=== PATIENT | female | born 1975 | race Caucasian/White ===

== ENCOUNTER → 2020-10-22 | Outpatient (CLI) | payer OTHER ==
--- NOTE | 2020-10-25 07:15 | BMR ---
EXAMINATION TYPE: MR breast BILAT wo/w con DATE OF EXAM: 10/22/2020 COMPARISON: None at this institution. HISTORY: Breast cancer gene mutation-high risk TECHNIQUE: A series of fat and water weighted images in the long and short axis views of both breasts are obtained in conjunction with dynamic contrast MRI with subtraction technique. The patient was i njected with 8.5 ml mL intravenous Gadavist gadolinium contrast. Three-dimensional and additional p ostprocessing imaging is created on independent workstation and reviewed during official interpretati on of this study. FINDINGS: Heterogeneously dense fibroglandular tissue scattered throughout both breasts. T2 and STIR weighted images show no significant cystic change in either breast. No suspicious axillary adenopathy . Dynamic imaging shows fairly moderate background enhancement which is noted to lower sensitivity. D elayed dynamic imaging shows no suspicious internal mammary adenopathy. With regards to the left breast. Normal glandular enhancement is identified. No pathologic enhancemen t or enhancing masses are seen. No suspicious skin thickening. Chest wall is intact. With regards to the right breast there is a single suspicious 6 x 2 x 8 mm focus of T1 hypointensity and T2 hyperintensity with more heterogeneous enhancement roughly 5.0 cm distance from nipple middle depth central portion right breast seen best on dynacad imaging that is suspicious. No additional are as of pathologic enhancement or enhancing mass. No suspicious skin thickening. Chest wall is intact. IMPRESSION: Single small area of concern right breast. BI-RADS 2 benign findings left breast BI-RADS 0 incomplete study right breast Recommendation: Direct correlation with outside MRI to see if the area of concern is new finding whic h would warrant further diagnostic workup.
== END | disposition home or self-care (01) ==
LOC: RADMRIMAIN 11:36
PROVIDERS: ATTEND Obstetrics & Gynecology
DX: C50.919 Malignant neoplasm of unspecified site of unspecified female breast (principal); Z15.01 Genetic susceptibility to malignant neoplasm of breast
CPT/HCPCS: 77049; C8937; A9585

== ENCOUNTER 2021-05-19 06:16 | Day surgery (SDC) | payer OTHER ==
[2021-05-17 11:43] VITALS: BMI 33.6
[~2021-05-19 06:16] MED LIST: DEXAMETHASONE SOD PHOSPHATE 4 MG/ML 1 ML VIAL IV ONE; LACTATED RINGERS 1,000 ML IV SCH; MIDAZOLAM 2 MG/2 ML VIAL IV PRN; ONDANSETRON 4 MG/2 ML VIAL IVP ONE; SCOPOLAMINE 1.5MG/72HR PATCH TRANSDERM ONE
[2021-05-19] MEDS ORDERED: LIDOCAINE 1% (10MG/ML) FOR IV START INTRADERMA ONE (07:00)
[2021-05-19] MEDS ORDERED: HYDROmorphone 0.5 MG/0.5 ML SYRINGE IVP PRN (07:00)
[2021-05-19] MEDS ORDERED: .fentaNYL (PF) 50 MCG/ML 2 ML AMP ONE (07:21)
[2021-05-19] MEDS ORDERED: SUCCINYLCHOLINE CHLORIDE 100 MG/5 ML SYR IV ONE (07:21)
[2021-05-19] MEDS ORDERED: LIDOCAINE 1% INJ 10MG/ML (20 ML MDV) ONE (07:21)
[2021-05-19] MEDS ORDERED: PHENYLEPHRINE-0.9% NACL SYG 1,000 MCG/10 ML SYRINGE ONE (07:21)
[2021-05-19] MEDS ORDERED: PROPOFOL 10 MG/ML 20 ML VIAL IV ONE (07:21)
[2021-05-19] MEDS ORDERED: MIDAZOLAM 2 MG/2 ML VIAL ONE (07:21)
[2021-05-19] MEDS ORDERED: BUPIVACAINE (PF) 0.25% 30 ML VIAL SQ ONE (07:45)
[2021-05-19] MEDS ORDERED: LACTATED RINGERS 1,000 ML IV ONE (08:22)
--- NOTE | 2021-05-19 09:13 | P.OP ---
Date of Procedure: 05/19/21 Preoperative Diagnosis: Hallux valgus left foot Postoperative Diagnosis: Same Procedure(s) Performed: Modified Lapidus bunionectomy left foot Implants: Lapilasty plates and screws Anesthesia: MELVA Surgeon: Bowen Martinez Estimated Blood Loss (ml): 5 Pathology: none sent Condition: stable Disposition: PACU Description of Procedure: The patient was brought into the operating room and placed on the table supine position. Timeout was taken to confirm correct patient identifiers, correct procedure, and correct site of surgery. When all staff in the room were in agreement with the timeout, the patient was induced and placed under general anesthesia. An ankle block was performed with 20cc of Marcaine. A well-padded tourniquet was placed on the left ankle and then the left foot was prepped and draped in the usual manner. The foot was exsanguinated with an Esmarch bandage and the tourniquet inflated to 250 mmHg. Attention was first directed over the medial aspect of the first metatarsal phalangeal joint, where a linear incision was made between the neurovascular structures. It was deepened down to the saphenous tissue careful to identify, avoid, and retract any neurovascular structures and cauterize any bleeding vessels. Dissection was continued down to the first metatarsal phalangeal joint capsule. 2 semi-elliptical converging incisions are made along the medial aspect of the first metatarsal phalangeal joint and then the interposing piece of capsule was removed. The capsule was reflected from its osseous attachments on the medial plantar aspects of the first metatarsal head. The sesamoid apparatus was distracted plantarly and then the lateral sesamoid collateral ligament was transected and a lateral capsulotomy performed. Attention was directed over the dorsal aspect of the foot where a 6 cm incision was made centered over the tarsometatarsal joint medial to the extensor hallucis longus tendon. The incision was deepened down to the saphenous tissue careful to identify, avoid, and retract any neurovascular structures and cauterize any bleeding vessels. Dissection was then continued down to the periosteum and capsule and the same area. An incision was made medial to the extensor hallucis longus tendon to these tissues. Subperiosteal dissection was performed to expose the first tarsometatarsal joint. An osteotome was inserted into the joint to free the soft tissue attachments. A wire was placed through the medial aspect of the base of the first metatarsal to act as a joystick for frontal plane correction of the deformity. A fulcrum/joint seeker was then placed into the first tarsometatarsal joint. A Small stab incision was made on the lateral side of second metatarsal and bluntly dissected along the second metatarsal. The intermetatarsal angle reduction clamp was then placed over the second meta tarsal and then medially on the flare of the base of the first metatarsal. While simultaneously holding the frontal plane correction and position the reduction clamp was advanced to close the intermetatarsal angle. Fluoroscopic imaging was used to check the amount of correction. Once the frontal plane rotation as well as the transverse plane to 40 were fully corrected a guidepin was then placed through the reduction clamp to lock it in place. The cut guide was placed over the joint seeker and held in place with pins. Fluoroscopy was used to check the alignment to make sure there was enough bone resection. Once adequate a third pin was placed through the cut guide to lock it in place. A sagittal saw was then used to resect the articular surface of the base of first metatarsal and distal medial cuneiform. The locking pin for the cut guide was removed and then the cut guide was removed. Joint seeker was also removed at this time. The distraction device was placed over the pins and the joint opened to allow access for the cut portions of bone. The cut portions of bone were removed. And then the wound was explored for any remaining pieces of bone. Once fully clean that wound is irrigated thoroughly with antibiotic saline. Then a 2 mm drill bit was used to aggressively fenestrate the conjoining surfaces of the arthrodesis site. The pin through the angle reduction clamp was removed and the fulcrum reinserted at the lateral side of the base of the first metatarsal. Then the distractor was reversed and then was used to compressed the arthrodesis site while holding the great toe dorsiflexed. The compression was done until the arthrodesis site was fully compressed. Once fully compressed fluoroscopy was used to make sure that the correction was maintained at that there was indeed adequate bony contact at the arthrodesis site. Lateral view also show that there was no plantar angulation. Once that was satisfactory of threaded olive wire was placed from dorsal proximal to distal plantar for point of fixation. Then the medial plate was positioned over the arthrodesis site and under direct fluoroscopic visualization was adjusted until the placement was ideal then temporarily fixated. The 2 internal screws were placed first. Then the temporary fixation was removed and the most distal and proximal screws inserted. Fluoroscopic imaging showed that the plate was properly positioned. Then the distractor and guidepins were removed and then the dorsal plate was positioned under fluoroscopy and adjusted into ideal alignment and then temporarily fixated. The 2 screws closest to the arthrodesis site were placed first and then the temporary fixation removed and the most distal and proximal screws inserted through the plate. The olive wire was then removed and fluoroscopic imaging was used to check the position of the plates and the overall correction of the deformity. Intermetatarsal angle was corrected, the sesamoids were properly aligned and there was good compression maintain at the arthrodesis site. At this point stresses placed between the second and first metatarsals to see if there is any cuneiform instability. There was gapping not ed at the cuneiform therefore a independent cannulated screw was inserted from medial to lateral through the intercuneiform joint. Fluoroscopy confirmed the positioning. The area was stressed under fluoroscopy again and there was no excessive movement. All wounds were then thoroughly irrigated with antibiotic saline. The first metatarsal phalangeal joint capsule was closed with 0 Vicryl while holding the great toe to correct position. The deep tissue on the dorsal incision was also closed with 0 Vicryl. All incisions were closed with 4-0 Monocryl subcutaneously. The medial dorsal incisions were closed with 4-0 Stratafix in a running subcuticular manner. Dermal glue was applied to all incisions. Steri-Strips are placed across all incisions. An Arthrex jumpstart dressing was placed over all incisions. Then a bulky dry dressing applied to the left foot. Tourniquet was released and capillary refill return to all digits on the left foot. Then the patient was placed in a well-padded, well molded plaster posterior mold/sugar tong splint. Ankle was held in neutral position until the splint was dried. Then anesthesia was reversed and the patient was taken recovery with vital signs stable.
[2021-05-19 09:18] VITALS: TEMP 97.3
[2021-05-19 09:24] VITALS: RESP 16
[2021-05-19] MEDS ORDERED: HYDROcodone/APAP 5-325MG 1 EACH TAB ONE (10:03)
[2021-05-19] MEDS ORDERED: HYDROcodone/APAP 5-325MG 1 EACH TAB PO ONE (10:05)
[2021-05-19 10:21] VITALS: BP 119/72; PULSE 85
== END 2021-05-19 10:43 | disposition home or self-care (01) ==
LOC: OR 06:16
PROVIDERS: ATTEND Podiatrist
DX: M20.12 Hallux valgus (acquired), left foot (principal); E78.5 Hyperlipidemia, unspecified; F32.A Depression, unspecified; Z90.710 Acquired absence of both cervix and uterus; Z98.890 Other specified postprocedural states; Z82.49 Family history of ischemic heart disease and other diseases of the circulatory system; Z83.3 Family history of diabetes mellitus; Z79.899 Other long term (current) drug therapy; Z88.0 Allergy status to penicillin; Z91.09 Other allergy status, other than to drugs and biological substances
CPT/HCPCS: 28292; C1713; J2250; J1100; J0690; J2405; J2001; J3010; J2370; J0330; J2704